=== PATIENT | female | born 1965 | race African-American/Black ===

== ENCOUNTER 2017-03-05 08:25 | Emergency (ER) | payer OTHER ==
[2017-03-05] MEDS ORDERED: Ibuprofen 800 MG TAB ONE (08:50)
== END 2017-03-05 09:40 | disposition home or self-care (01) ==
LOC: NAV ERS 08:25
DX: J10.1 Influenza due to other identified influenza virus with other respiratory manifestations (principal); D64.9 Anemia, unspecified; Z79.899 Other long term (current) drug therapy
CPT/HCPCS: 99283

== ENCOUNTER 2018-12-05 04:25 | Emergency (ER) | payer OTHER ==
[2018-12-05] MEDS ORDERED: Ketorolac Tromethamine 30 MG/ML VIAL ONE (04:36)
[2018-12-05] MEDS ORDERED: Benzonatate 100 MG CAP ONE (04:36)
--- NOTE | 2018-12-05 09:09 | RAD ---
PA AND LATERAL VIEWS CHEST: Date: 12/05/18 HISTORY: Cough. FINDINGS: The cardiomediastinum is normal. The lungs are expanded and clear. The bony thorax is normal. IMPRESSION: No radiographic evidence of acute cardiopulmonary process. POS: OFF
== END 2018-12-05 05:06 | disposition home or self-care (01) ==
LOC: NAV ERS 04:25
DX: S29.012A Strain of muscle and tendon of back wall of thorax, initial encounter (principal); J06.9 Acute upper respiratory infection, unspecified; D64.9 Anemia, unspecified; Z79.52 Long term (current) use of systemic steroids; H40.9 Unspecified glaucoma; X58.XXXA Exposure to other specified factors, initial encounter
CPT/HCPCS: 71046; 96372; J1885

== ENCOUNTER 2019-10-17 16:25 | Emergency (ER) | payer OTHER ==
[2019-10-17] MEDS ORDERED: Tetracaine HCl 0.5% Ophth Soln 2 ML Bottle ONE (17:06)
[2019-10-17] MEDS ORDERED: Ondansetron PF 4 MG/2 ML Vial ONE (17:54)
[2019-10-17] MEDS ORDERED: Morphine 4 MG/ML VIAL ONE (17:54)
== END 2019-10-17 18:37 | disposition home or self-care (01) ==
LOC: NAV ERS 16:25
DX: H10.9 Unspecified conjunctivitis (principal); D64.9 Anemia, unspecified
CPT/HCPCS: 96374; 96375; J2270; J2405

== ENCOUNTER 2020-02-20 16:40 | Emergency (ER) | payer OTHER ==
[2020-02-21 18:28] LABS: SARS-CoV-2 MS2 Positive; SARS-CoV-2 N Gene Negative; SARS-CoV-2 S Gene Negative; SARS-CoV-2 by NAA Not Detected (NotDetected); SARS-CoV-2 orf1ab Negative
== END 2020-02-20 17:46 | disposition home or self-care (01) ==
LOC: NAV ERS 16:40
DX: J06.9 Acute upper respiratory infection, unspecified (principal); Z20.828 Contact with and (suspected) exposure to other viral communicable diseases; D64.9 Anemia, unspecified; Z79.899 Other long term (current) drug therapy
CPT/HCPCS: 87635; 87804; 99283; U0003

== ENCOUNTER 2020-09-24 18:20 | Emergency (ER) | payer OTHER ==
[2020-09-25 19:45] LABS: SARS-CoV-2 PCR by NAA Not Detected (NotDetected)
== END 2020-09-24 18:45 | disposition home or self-care (01) ==
LOC: NAV ERS 18:20
DX: J06.9 Acute upper respiratory infection, unspecified (principal); Z20.822 Contact with and (suspected) exposure to COVID-19
CPT/HCPCS: 99283; U0003; U0005

== ENCOUNTER 2021-02-17 11:14 | Emergency (ER) | payer BC, OTHER ==
[2021-02-17 15:18] LABS: SARS-CoV-2 NAA Rapid Test DETECTED (NotDetected)
== END 2021-02-17 13:23 | disposition home or self-care (01) ==
LOC: NAV ERS 11:14
DX: U07.1 COVID-19 (principal); J06.9 Acute upper respiratory infection, unspecified
CPT/HCPCS: 0240U; 99284

== ENCOUNTER 2021-04-24 18:17 | Emergency (ER) | payer BC, OTHER, SELFPAY | END 2021-04-24 18:43 | disposition home or self-care (01) | LOC: NAV ERS 18:17 | DX: J06.9 Acute upper respiratory infection, unspecified (principal); B34.9 Viral infection, unspecified; D64.9 Anemia, unspecified; H40.9 Unspecified glaucoma | CPT/HCPCS: 99283 ==

== ENCOUNTER 2021-05-05 13:32 | Emergency (ER) | payer BC ==
[2021-05-05 14:09] LABS: #Eosinphils 0.1 thou/uL (0.0-0.7); #Lymphocytes 1.5 thou/uL (1.20-3.40); #Monocytes 0.8 thou/uL (0.11-0.59); #Neutrophils 3.3 thou/uL (1.40-6.50); %Basophils 0.8 % (0.0-1.0); %Eosinophils 2.1 % (0.0-10.0); %Lymphocytes 25.9 % (21.0-51.0); %Monocytes 13.2 % (0.0-10.0); %Neutrophils 58.1 % (42.0-75.0); Mean Corpuscular HGB CONC 31.8 g/dL (32.0-36.0); Mean Corpuscular Volume 88.2 fL (78.0-98.0); Mean Platelet Volume 6.8 fL (7.4-10.4); Platelet Count 301 thou/uL (130-400); RBC Distribution Width 12.3 % (11.5-14.5); Red Blood Cell (RBC) Count 3.93 mill/uL (4.20-5.40); White Blood Cell (WBC) Count 5.7 thou/uL (4.8-10.8)
[2021-05-05 14:23] LABS: ALT (SGPT) 87 U/L (8-55); AST (SGOT) 71 U/L (5-34); Albumin 3.6 g/dL (3.5-5.0); Alkaline Phosphatase 105 U/L (40-110); Anion Gap 16 mmol/L (10-20); BUN (Urea Nitrogen) 20 mg/dL (9.8-20.1); Bilirubin, Total 0.4 mg/dL (0.2-1.2); Calc. Creatinine Clearance 0 mL/min (70-130); Calcium 9.7 mg/dL (7.8-10.44); Carbon Dioxide 19 mmol/L (22-29); Chloride 112 mmol/L (98-107); Globulin 3.4 g/dL (2.4-3.5); Glucose 131 mg/dL (70-105); Potassium 3.7 mmol/L (3.5-5.1); Sodium 143 mmol/L (136-145)
[2021-05-05 14:33] LABS: Bilirubin Negative (Negative); Blood, Urine Trace (Negative); Glucose, Urine (Dipstick) Negative (Negative); Ketone, Urine Negative (Negative); Leukocyte Small (Negative); Nitrite Negative (Negative); Protein, Urine (Dipstick) Negative (Neg-Trace); Urobilinogen 0.2 mg/dL (Less than 2)
[2021-05-05 14:36] LABS: Clarity SL HAZY (Clear)
[2021-05-05 14:48] LABS: Specific Gravity, Urine 1.025 (1.002-1.036)
[2021-05-05 14:49] LABS: Bacteria/HPF Rare-Few HPF (None Seen); RBC/HPF 0-3 HPF (0-3); Squamous Epithelial 0-3 HPF (0-3)
[2021-05-05] MEDS ORDERED: Ondansetron PF 4 MG/2 ML Vial ONE (15:54)
[2021-05-05] MEDS ORDERED: Morphine 4 MG/ML VIAL ONE (15:54)
== END 2021-05-05 17:13 | disposition short-term general hospital (02) ==
LOC: NAV ERS 13:32
DX: R60.0 Localized edema (principal); R00.0 Tachycardia, unspecified; I49.3 Ventricular premature depolarization; D64.9 Anemia, unspecified
CPT/HCPCS: 71045; 80053; 81003; 81015; 83880; 84484; 85025; 85379; 93005; 96374; 96375; J2270; J2405

== ENCOUNTER 2021-12-24 05:50 | Emergency (ER) | payer BC | END 2021-12-24 06:30 | disposition home or self-care (01) | LOC: NAV ERS 05:50 | DX: J06.9 Acute upper respiratory infection, unspecified (principal); D64.9 Anemia, unspecified; I10 Essential (primary) hypertension; Z79.899 Other long term (current) drug therapy | CPT/HCPCS: 99283 ==

== ENCOUNTER 2024-04-16 13:21 | Emergency (ER) | payer OTHER, BC ==
[2024-04-16] MEDS ORDERED: Ibuprofen 800 MG TAB ONE (13:56)
== END 2024-04-16 15:40 | disposition home or self-care (01) ==
LOC: NAV ERS 13:21
DX: S46.001A Unspecified injury of muscle(s) and tendon(s) of the rotator cuff of right shoulder, initial encounter (principal); I10 Essential (primary) hypertension; W01.10XA Fall on same level from slipping, tripping and stumbling with subsequent striking against unspecified object, initial encounter
CPT/HCPCS: 99283

== ENCOUNTER 2024-04-17 07:39 | Emergency (ER) | payer OTHER, BC ==
[2024-04-17] MEDS ORDERED: Ketorolac Tromethamine 60 MG/2 ML VIAL ONE (08:20)
== END 2024-04-17 08:18 | disposition home or self-care (01) ==
LOC: NAV ERS 07:39
DX: S43.401A Unspecified sprain of right shoulder joint, initial encounter (principal); I10 Essential (primary) hypertension; E05.90 Thyrotoxicosis, unspecified without thyrotoxic crisis or storm; D64.9 Anemia, unspecified; X58.XXXA Exposure to other specified factors, initial encounter; Z79.899 Other long term (current) drug therapy
CPT/HCPCS: 96372; 99283; J1885